=== PATIENT | male | born 1980 | race Caucasian/White ===

== ENCOUNTER 2019-03-08 09:51 | Outpatient (CLI) | payer BC ==
--- NOTE | 2019-03-08 11:19 | RAD ---
2 VIEW CHEST: Date: 03/08/19 HISTORY: Follow-up pneumonia. There are no comparison studies available. FINDINGS: Subtle linear density in the left lung base could represent residual infiltrate or atelectasis. Lung sterling are otherwise clear. Heart and mediastinum unremarkable. IMPRESSION: Streaky opacity in the left lung base is seen, possibly representing residual infiltrate. POS: [facility]
== END 2019-03-08 09:52 | disposition home or self-care (01) ==
LOC: RAD-FRANK 09:51
PROVIDERS: ATTEND Nurse Practitioner Family
DX: Z09 Encounter for follow-up examination after completed treatment for conditions other than malignant neoplasm (principal); J18.9 Pneumonia, unspecified organism; R91.8 Other nonspecific abnormal finding of lung field
CPT/HCPCS: 71046